=== PATIENT | male | born 1995 | race Asian ===

== ENCOUNTER 2016-10-08 16:00 | Emergency (ER) | payer OTHER ==
[~2016-10-08] VITALS: Ht 188 cm; Wt 78.6 kg
[2016-10-08 16:00] VITALS: TEMP 97.2; Ht 188 cm; Wt 78.6 kg
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
--- NOTE | 2016-10-08 16:05 | NUR ---
IN TO EXAMINE PATIENT
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
[2016-10-08] MEDS ORDERED: NORMAL SALINE 1,000 ML IV ONE (16:15)
[2016-10-08] MEDS ORDERED: NO ROUTINE MEDS (16:30)
[2016-10-08 16:34] LABS: BASOPHILS % (AUTO) 0.6 % (0-2); EOSINOPHILS # (AUTO) 0.2 T/MM3 (0-0.5); EOSINOPHILS % (AUTO) 2.1 % (0-4); HCT - HEMATOCRIT 46.6 % (41-53); HGB - HEMOGLOBIN 15.7 GM/DL (13.5-17.5); IMMATURE GRANULOCYTE # (AUTO) 0.02 T/MM3 (0.00-0.03); IMMATURE GRANULOCYTE % (AUTO) 0.3 % (0.0-0.5); LYMPHOCYTES % (AUTO) 27.1 % (23-45); MEAN CORPUSCULAR HGB 31.2 UUG (26-34); MEAN CORPUSCULAR HGB CONC(MCHC 33.7 GM/DL (31-37); MEAN CORPUSCULAR VOLUME 92.6 UM3 (80-100); MEAN PLATELET VOLUME 9.6 UM3 (9.4-12.4); MONOCYTES # (AUTO) 0.4 T/MM3 (0-0.8); MONOCYTES % (AUTO) 5.8 % (0-9.0); NEUTROPHILS #(AUTO)-ABSOLUTE 4.7 T/MM3 (1.8-7.7); NEUTROPHILS % (AUTO) 64.1 % (33-66); RED BLOOD COUNT 5.03 M/MM3 (4.50-5.90); WBC - WHITE BLOOD COUNT 7.2 T/MM3 (4.5-11.0)
[2016-10-08 16:44] LABS: ALBUMIN 4.3 G/DL (3.5-5.0); ALBUMIN/GLOBULIN RATIO 1.4 RATIO (1.1-2.2); ALKALINE PHOSPHATASE 63 U/L (38-126); ALT (SGPT) 51 U/L (21-72); ANION GAP 9 MEQ/L (5-15); AST (SGOT) 40 U/L (17-59); BUN/CREATININE RATIO 20 RATIO (6-26); CALCIUM 9.2 MG/DL (8.4-10.2); CHLORIDE 105 MEQ/L (98-107); CO2 - CARBON DIOXIDE 28 MEQ/L (22-30); CREATININE 0.9 MG/DL (0.8-1.5); GLOMERULAR FILTRATION RATE 106; GLUCOSE 99 MG/DL (75-110); LIPASE 56 U/L (23-300); POTASSIUM 4.1 MEQ/L (3.6-5); SODIUM 142 MEQ/L (134-144); TOTAL PROTEIN 7.3 G/DL (6.3-8.2)
[2016-10-08] MEDS ORDERED: IOHEXOL 300 MG/ML 100ml INJECTION ONE (16:52)
[2016-10-08] MEDS ORDERED: NORMAL SALINE 100 ML ONE (16:52)
[2016-10-08] MEDS ORDERED: SALINE FLUSH 10ml SYRINGE ONE (16:52)
[2016-10-08 18:25] VITALS: BP 107/55; PULSE 64; RESP 16; O2SAT 100
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
== END 2016-10-08 18:32 | disposition home or self-care (01) ==
LOC: ED 16:00
DX: S30.811A Abrasion of abdominal wall, initial encounter (principal); R10.30 Lower abdominal pain, unspecified; V47.5XXA Car driver injured in collision with fixed or stationary object in traffic accident, initial encounter; Y93.89 Activity, other specified; Y92.410 Unspecified street and highway as the place of occurrence of the external cause; Y99.8 Other external cause status
CPT/HCPCS: 74177; 80053; 83690; 85025; 96360; 96361; 99284; J7050; Q9967